=== PATIENT | female | born 2005 | race Caucasian/White ===

== ENCOUNTER 2024-07-30 16:08 | Emergency (ER) | payer OTHER, SELFPAY ==
[2024-07-30 16:28] VITALS: BP 125/87; PULSE 81; RESP 20; TEMP 36.6; O2SAT 100; BMI 21.2
[2024-07-30 17:01] LABS: Add Manual Diff / Slide Review NO; Basophils Absolute Auto 100 /uL (0-100); Basophils Percent Auto 1.1 % (0-2); Eosinophils Absolute Auto 100 /uL (0-450); Eosinophils Percent Auto 2.4 % (2-4); Hematocrit 34.6 % (36-46); Hemoglobin 11.8 g/dL (12.0-16.0); Lymphocytes Absolute Auto 1800 /uL (1100-4500); Lymphocytes Percent Auto 34.7 % (25-40); Mean Corpuscular Hemoglobin 29.2 PG (26-34); Monocytes Absolute Auto 400 /uL (0-900); Monocytes Percent Auto 7.8 % (3-14); Neutrophils Absolute Auto 2800 /uL (1500-7000); Platelet Count 232 X10^3/uL (150-400); Red Blood Cell Count 4.03 X10^6/uL (4.0-5.2); Red Cell Distribution Width 13.2 % (11.6-14.8); White Blood Cell Count 5.3 X10^3/uL (4.5-11.0)
[2024-07-30 17:10] VITALS: BP 132/85; PULSE 79; RESP 14; TEMP 36.7; O2SAT 100
[2024-07-30 17:14] LABS: Alanine Aminotransferase 25 IU/L (<35); Albumin 4.7 g/dL (3.5-5.0); Albumin Globulin Ratio 1.7 (1.0-2.8); Alkaline Phosphatase 44 U/L (38-126); Aspartate Aminotransferase 33 IU/L (14-36); BUN Creatinine Ratio 34.8 (6-22); Bilirubin Total 0.4 mg/dL (0.2-1.3); Blood Urea Nitrogen 23 mg/dL (7-17); Calcium 9.1 mg/dL (8.4-10.2); Carbon Dioxide 20 mmol/L (22-32); Chloride 107 mmol/L (98-107); Estimated Glomerular Filt Rate > 60 mL/min (>60); Globulin 2.8 g/dL (1.7-4.1); Glucose 93 mg/dL (70-99); HEMOLYSIS < 15 (0-50); Potassium 4.1 mmol/L (3.4-5.1); Sodium 138 mmol/L (137-145); Total Protein 7.5 g/dL (6.3-8.2)
--- NOTE | 2024-07-30 17:43 | DI.RAD.S_ITS ---
PROCEDURE: XR CHEST 2V INDICATIONS: fatigue fevers TECHNIQUE: 2 views of the chest were acquired. COMPARISON: None. FINDINGS: Surgical changes and devices: None. Lungs and pleura: Lungs are clear. No pleural effusions or pneumothorax. Mediastinum: Mediastinal contours are normal. Heart size is normal. Bones and chest wall: No suspicious bony abnormalities. Soft tissues appear unremarkable. IMPRESSION: No acute cardiopulmonary abnormality is seen. Dictated by: Alonzo Tadeo M.D. on 07/30/2024 at 18:27 Approved by: Alonzo Tadeo M.D. on 07/30/2024 at 18:27
[2024-07-30 17:58] LABS: INR 1.1 (0.9-1.3); Prothrombin Time 11.9 SECONDS (9.4-12.5)
[2024-07-30 18:00] LABS: PTT Partial Thromboplastin Tim 35 SECONDS (25.1-36.5)
[2024-07-30 18:03] LABS: Monotest Negative (Negative)
--- NOTE | 2024-07-30 18:44 | ED_ITS ---
<Statement entered by Karthik Hawkins DO - 07/30/24 22:25> Dr. Hawkins: I was immediately available in the department for consultation. I did not actually see the patient. HPI - Recheck/Abnormal Lab/Rx General Chief Complaint: Recheck/Abnormal Lab/Rx Stated Complaint: Fatigue, Fever Time Seen by Provider: 07/30/24 17:43 Source: patient Mode of arrival: Ambulatory History of Present Illness HPI narrative: Ms. Grossman is a very pleasant 19-year-old female with no prior past medical history, no PCP presents to the emergency department for concerns of fatigue, bruising on body, intermittent fevers x 1 year. 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 She is noticed over the last year worsening fatigue, small and medium-sized bruises that show up all over her body mainly in the legs and arms, occasional headaches and also occasional fevers without viral illness. She discussed these symptoms with her and who has a history of leukemia who state that her symptoms started with random bruising on the body. Patient denies current fevers, sore throat, cough, chest pain, shortness of breath, abdominal pain, nausea, vomiting, diarrhea. She occasionally uses THC vape, no other smoking or drug history, very occasional alcohol. Prior surgical history includes only wart removal right foot. She is previously from [place]. Review of Systems Review of Systems ROS Unobtainable: All systems reviewed & are unremarkable except as noted in HPI and below Patient History Smoking Status: Current some day smoker tobacco type: vaping Exam Narrative Exam Narrative: GENERAL: 19 year old patient appears stated age. Well-developed patient, in no acute distress. HEAD: Atraumatic. Normocephalic. EYES: Extraocular motions intact. No scleral icterus. No injection or drainage. NECK: Trachea midline. Cervical ROM intact. No palpable cervical lymphadenopathy. CARDIOVASCULAR: Regular rate and rhythm. RESPIRATORY: ?Nonlabored respirations. ?Speaking in clear, full sentences. ?Clear to auscultation. Breath sounds equal bilaterally. No wheezes, rales, or rhonchi. ? EXTREMITIES: No edema or joint tenderness. Faint healing ecchymosis on anterior left thigh. NEURO: AOx3. ?Clear speech. ?Moves all 4 extremities appropriately. SKIN: No rash or erythema of visible areas Initial Vital Signs Initial Vital Signs: Vital Signs Temperature 98 F 07/30/24 16:28 Pulse Rate 81 07/30/24 16:28 Respiratory Rate 20 07/30/24 16:28 Blood Pressure 125/87 07/30/24 16:28 Pulse Oximetry 100 07/30/24 16:28 Oxygen Delivery Method Room Air 07/30/24 16:28 Course Orders Ordered: ED Orders 07/30/24 16:54 CBC Auto Diff [Complete Blood Count AUTO DIFF] Stat CMP [Comprehensive Metabolic Panel] Stat Monotest Stat PT [Prothrombin Time INR] Stat PTT Partial Thromboplastin Atul Stat 07/30/24 17:43 XR chest 2V Stat Vital Signs Vital signs: Vital Signs - 8 hr 07/30/24 16:28 07/30/24 17:10 07/30/24 19:10 Temperature 98 F 98.0 F 97.7 F Pulse Rate 81 79 85 Respiratory Rate 20 14 14 Blood Pressure 125/87 132/85 103/65 Pulse Oximetry 100 100 99 Oxygen Delivery Method Room Air Room Air Room Air MDM - Recheck/Abnormal Lab/Rx Medical Records Medical records narrative: None available Lab Data 07/30/24 16:54 07/30/24 16:54 Labs: Lab Results 07/30/24 Range/Units 16:54 WBC 5.3 (4.5-11.0) X10^3/uL RBC 4.03 (4.0-5.2) X10^6/uL Hgb 11.8 L (12.0-16.0) g/dL Hct 34.6 L (36-46) % MCV 86.0 (80-100) fL MCH 29.2 (26-34) PG MCHC 34.0 (30-36) % RDW 13.2 (11.6-14.8) % Plt Count 232 (150-400) X10^3/uL Neut % (Auto) 54.0 (50-75) % Lymph % (Auto) 34.7 (25-40) % Yates % (Auto) 7.8 (3-14) % Eos % (Auto) 2.4 (2-4) % Baso % (Auto) 1.1 (0-2) % Neut # (Auto) 2800 (8863-3131) /uL Lymph # (Auto) 1800 (5503-2428) /uL Yates # (Auto) 400 (0-900) /uL Eos # (Auto) 100 (0-450) /uL Baso # (Auto) 100 (0-100) /uL PT 11.9 (9.4-12.5) SECONDS INR 1.1 (0.9-1.3) APTT 35 (25.1-36.5) SECONDS Sodium 138 (137-145) mmol/L Potassium 4.1 (3.4-5.1) mmol/L Chloride 107 (98-107) mmol/L Carbon Dioxide 20 L (22-32) mmol/L BUN 23 H (7-17) mg/dL Creatinine 0.66 (0.52-1.04) mg/dL Estimated GFR > 60 (>60) mL/min BUN/Creatinine Ratio 34.8 H (6-22) Glucose 93 (70-99) mg/dL Calcium 9.1 (8.4-10.2) mg/dL Total Bilirubin 0.4 (0.2-1.3) mg/dL AST 33 (14-36) IU/L ALT 25 (<35) IU/L Alkaline Phosphatase 44 (38-126) U/L Total Protein 7.5 (6.3-8.2) g/dL Albumin 4.7 (3.5-5.0) g/dL Globulin 2.8 (1.7-4.1) g/dL Albumin/Globulin Ratio 1.7 (1.0-2.8) Monoscreen Negative (Negative) Imaging Data Chest x-ray: Radiologist's Impression: PROCEDURE: XR CHEST 2V INDICATIONS: fatigue fevers TECHNIQUE: 2 views of the chest were acquired. COMPARISON: None. FINDINGS: Surgical changes and devices: None. Lungs and pleura: Lungs are clear. No pleural effusions or pneumothorax. Mediastinum: Mediastinal contours are normal. Heart size is normal. Bones and chest wall: No suspicious bony abnormalities. Soft tissues appear unremarkable. IMPRESSION: No acute cardiopulmonary abnormality is seen. Dictated by: Alonzo Tadeo M.D. on 07/30/2024 at 18:27 Approved by: Alonzo Tadeo M.D. on 07/30/2024 at 18:27 [facility] Narrative Medical decision making narrative: 19-year-old female with no prior past medical history, no PCP presents to the emergency department for concerns of fatigue, bruising on body, intermittent fevers x 1 year. Differential diagnosis includes but is not limited to coagulopathy, blood cancer, Lyme disease, vitamin-D deficiency, iron deficiency anemia, mononucleosis, HIV, thrombocytopenia, pneumonia, tuberculosis, etc. On exam patient is in no acute distress, nontoxic-appearing, all vital signs within normal limits. Lungs clear to auscultation bilaterally, no palpable cervical lymphadenopathy. Very faint bruise on left leg however patient was able to show me pictures on her phone of other bruises. We will check CBC, CMP, coagulation factors, Monospot, chest x-ray. Workup overall reassuring. Patient has a normal WBC, RBC, platelet count. Hemoglobin hematocrit are slightly low. Normal coags. BUN creatinine ratio is slightly elevated at 34.8. Normal electrolytes. Negative mono screen. Chest x-ray reveals no acute cardiopulmonary abnormality. Printed and discussed all results with the patient. She feels very reassured however at this time stressed the importance that more outpatient lab work and evaluation is needed with the primary care doctor, we provided her with information for [facility] PCPs. In the meantime I did recommend improved hydration, continued monitoring of symptoms, strict ED return precautions. Patient verbalized understanding of all information agreeable with the plan. She is stable for discharge home. Discharge Plan Departure Patient Disposition: Home Clinical Impression: Abnormal bruising Fatigue Qualifiers: Fatigue type: unspecified Qualified Code(s): R53.83 - Other fatigue Instructions: DI for Fatigue Activity Restrictions/Additional Instructions: Dear Ngoc, Thank you for coming to the emergency department. Today, we completed a work up for fatigue, intermittent fevers, nontraumatic bruising. Sometimes, we do not always find the cause for your symptoms in one ER visit. The findings on your exam today and on your blood work and imaging is reassuring. At this time, it is not 100% certain what is causing your symptoms, but we feel you can be discharged from the emergency department. It is possible this may worsen or you may get better. Please, if you get worse or your symptoms change, return to the emergency department. Otherwise, please follow up with a primary care doctor as soon as possible. Please follow up with your primary care doctor within the next 2-3 days for ER follow-up. (If you do not have a PCP you can call [phone]. ?to schedule an appointment with an [facility] Primary Care Provider) IF YOU DEVELOP ANY NEW OR WORSENING SYMPTOMS, RETURN TO THE ER! Please read the attached instructions, they highlight more specific treatments and interventions for you at home. Thank you for letting me participate in your care, Brigette Allen PA-C Stand Alone Forms: Patient Portal/API/Survey
[2024-07-30 19:10] VITALS: BP 103/65; PULSE 85; RESP 14; TEMP 36.5; O2SAT 99
== END 2024-07-30 19:28 | disposition home or self-care (01) ==
PROVIDERS: Emergency Medicine; Emergency Provider Physician Assistant
DX: S80.12XA Contusion of left lower leg, initial encounter (principal); R53.83 Other fatigue; X58.XXXA Exposure to other specified factors, initial encounter
CPT/HCPCS: 36415; 71046; 80053; 85025; 85610; 85730; 86318; 99281; 99284

== ENCOUNTER → 2024-09-25 10:19 | Outpatient (CLI) | payer OTHER, SELFPAY ==
[2024-09-25 10:36] LABS: Add Manual Diff / Slide Review NO; Hematocrit 35.6 % (36-46); Hemoglobin 12.2 g/dL (12.0-16.0); Lymphocytes Absolute Auto 2500 /uL (1100-4500); Mean Corpuscular HGB Conc 34.2 % (30-36); Mean Corpuscular Hemoglobin 29.8 PG (26-34); Mean Corpuscular Volume 86.9 fL (80-100); Platelet Count 243 X10^3/uL (150-400)
== END ==
LOC: LAB 10:20
PROVIDERS: PCP Family Medicine; Referring Provider Family Medicine; Visit Provider Family Medicine
DX: D64.9 Anemia, unspecified (principal); Z80.6 Family history of leukemia
CPT/HCPCS: 36415; 85025

== ENCOUNTER → 2025-02-03 07:57 | Outpatient (CLI) | payer OTHER, SELFPAY ==
--- NOTE | 2025-02-03 07:59 | DI.RAD.S_ITS ---
PROCEDURE: XR KNEE LT 3V INDICATIONS: L I ran into chair- knee pain TECHNIQUE: 3 views of the knee were acquired. COMPARISON: None. FINDINGS: Bones: No fractures or dislocations. No suspicious bony lesions. Soft tissues: Mild joint effusion. No suspicious soft tissue calcifications. IMPRESSION: No visualized acute fracture or dislocation. However, if clinical concern and/or pain persist, short interval imaging followup in 7-10 days is recommended, as occult injury cannot be definitively excluded. Dictated by: Yumiko Escamilla M.D. on 02/03/2025 at 16:41 Approved by: Yumiko Escamilla M.D. on 02/03/2025 at 16:42
== END ==
LOC: RAD 07:58
PROVIDERS: PCP Family Medicine; Referring Provider Nurse Practitioner Family; Visit Provider Nurse Practitioner Family
DX: S80.00XA Contusion of unspecified knee, initial encounter (principal); M25.462 Effusion, left knee; X58.XXXA Exposure to other specified factors, initial encounter
CPT/HCPCS: 73562